=== PATIENT | male | born 1985 | race African-American/Black ===

== ENCOUNTER 2016-11-24 17:33 | Emergency (ER) | payer MEDICAID ==
[~2016-11-24] VITALS: Ht 165.1 cm; Wt 52.6 kg
[2016-11-24 17:36] VITALS: BP 122/69
== END 2016-11-24 17:57 | disposition home or self-care (01) ==
LOC: ER 17:38
DX: B35.6 Tinea cruris (principal); I10 Essential (primary) hypertension
CPT/HCPCS: 99282; A4606; Z7610

== ENCOUNTER 2017-03-09 22:55 | Emergency (ER) | payer MEDICAID ==
[~2017-03-09] VITALS: Ht 165.1 cm; Wt 72.6 kg
[2017-03-09 23:00] VITALS: BP 135/81
[2017-03-09] MEDS ORDERED: KETOROLAC TROMETHAMINE INJ 60 MG/2 ML VIAL IM STA (23:58)
[2017-03-09] MEDS ORDERED: AMOXICILLIN TRIHYDRATE 250 MG CAPSULE PO STA (23:58)
[2017-03-10] MEDS ORDERED: KETOROLAC TROMETHAMINE INJ 60 MG/2 ML VIAL IM ONE (00:16)
[2017-03-10] MEDS ORDERED: AMOXICILLIN TRIHYDRATE 250 MG CAPSULE ONE (00:16)
== END 2017-03-10 00:32 | disposition home or self-care (01) ==
LOC: ER 22:56
DX: J02.0 Streptococcal pharyngitis (principal)
CPT/HCPCS: 96372; 99283; A4606; J1885; Z7610

== ENCOUNTER 2018-04-04 13:27 | Emergency (ER) | payer MEDICAID ==
[~2018-04-04] VITALS: Ht 167.6 cm; Wt 72.6 kg
[2018-04-04 13:37] VITALS: BP 125/95
[2018-04-04 14:05] LABS: BASOPHILS % (AUTO) 0.4 % (0.0-2.0); EOSINOPHILS % (AUTO) 2.9 % (0.0-6.0); HEMATOCRIT 47 % (39-51); HEMOGLOBIN 15.5 g/dL (13.5-17.5); LYMPHOCYTES # (AUTO) 2.7 /CMM (0.8-4.8); LYMPHOCYTES % (AUTO) 28.7 % (20.0-44.0); MEAN CORPUSCULAR HEMOGLOBIN 30 PG (26.0-33.0); MEAN CORPUSCULAR HGB CONC 33 g/dl (31.0-36.0); MEAN CORPUSCULAR VOLUME 90 fL (80-96); MONOCYTES # (AUTO) 0.8 /CMM (0.1-1.30); MONOCYTES % (AUTO) 8.8 % (2.0-12.0); NEUTROPHILS # (AUTO) 5.5 /CMM (1.8-8.9); NEUTROPHILS % (AUTO) 59.2 % (43.0-81.0); PLATELET COUNT (AUTO) 218 /CMM (150-450); RDW COEFFICIENT OF VARIATION 12.7 (11.5-15.0); RED BLOOD CELL COUNT(AUTO) 5.21 MIL/uL (4.5-6.0)
[2018-04-04 14:18] LABS: CALCIUM, SERUM 8.4 mg/dL (8.5-10.1); POTASSIUM 3.5 mmol/L (3.5-5.1)
[2018-04-04 14:23] LABS: ALBUMIN 3.5 g/dL (3.4-5.0); BILIRUBIN,DIRECT 0.1 mg/dL (0.0-0.2); BILIRUBIN,TOTAL 0.7 mg/dL (0.2-1.0); TOTAL PROTEIN, SERUM 6.8 g/dL (6.4-8.2)
[2018-04-04] MEDS ORDERED: IBUPROFEN 400 MG TABLET PO ONE (14:30)
[2018-04-04] MEDS ORDERED: IBUPROFEN 400 MG TABLET ONE (14:35)
[2018-04-04 14:36] LABS: APPEARANCE,URINE CLEAR (CLEAR); BILIRUBIN,URINE NEGATIVE (NEGATIVE); BLOOD, URINE NEGATIVE Ery/uL (NEGATIVE); COLOR,URINE YELLOW (YELLOW); KETONES,URINE NEGATIVE (NEGATIVE); LEUKOCYTE ESTERASE ,URINE NEGATIVE (NEGATIVE); NITRITE, URINE NEGATIVE (NEGATIVE); PROTEIN,URINE NEGATIVE (NEGATIVE); UGLUCOSE NEGATIVE (NEGATIVE); UROBILINOGEN,URINE 0.2 EU/dL (0.2)
[2018-04-04 15:18] LABS: EOSINOPHILS % (MANUAL) 2 % (0-4); LYMPHOCYTES % (MANUAL) 29 % (16-48); MONOCYTES % (MANUAL) 6 % (0-11.0); NEUTROPHILS % (MANUAL) 58 (42-76); REACTIVE LYMPHOCYTES 5 % (0-0)
[2018-04-04 15:20] LABS: WHITE BLOOD COUNT (AUTO) 9.3 K/uL (4.3-11.0)
== END 2018-04-04 15:50 | disposition home or self-care (01) ==
LOC: ER 13:30
DX: M54.5 Low back pain (principal)
CPT/HCPCS: 36415; 80048; 80076; 81001; 83690; 85025; 99284; A4606; Z7610; 81000-TC

== ENCOUNTER 2018-06-01 21:56 | Emergency (ER) | payer MEDICAID ==
[~2018-06-01] VITALS: Ht 165.1 cm; Wt 83.0 kg
[2018-06-01 21:59] VITALS: BP 142/82
== END 2018-06-02 00:22 | disposition home or self-care (01) ==
LOC: ER 21:57
DX: S90.562A Insect bite (nonvenomous), left ankle, initial encounter (principal); W57.XXXA Bitten or stung by nonvenomous insect and other nonvenomous arthropods, initial encounter; Y93.89 Activity, other specified; Y92.89 Other specified places as the place of occurrence of the external cause; Y99.8 Other external cause status
CPT/HCPCS: 99281; A4606; Z7610; Z7502

== ENCOUNTER 2023-10-29 10:28 | Emergency (ER) | payer MEDICAID, OTHER ==
[~2023-10-29] VITALS: Ht 165.1 cm; Wt 90.7 kg
[2023-10-29] MEDS ORDERED: IV NS 0.9% 250 ML IV ONE (11:24)
[2023-10-29] MEDS ORDERED: IOHEXOL-300 100 ML VIAL IV ONE (11:24)
[2023-10-29 11:34] LABS: BASOPHILS % (AUTO) 0.3 % (0.0-2.0); EOSINOPHILS # (AUTO) 0.2 K/uL (0.0-0.7); EOSINOPHILS % (AUTO) 2.7 % (0.0-6.0); HEMATOCRIT 46 % (39-51); HEMOGLOBIN 15.3 g/dL (13.5-17.5); LYMPHOCYTES # (AUTO) 2.6 K/uL (0.8-4.8); LYMPHOCYTES % (AUTO) 30.4 % (20.0-44.0); MEAN CORPUSCULAR HEMOGLOBIN 29 PG (26.0-33.0); MEAN CORPUSCULAR HGB CONC 33 g/dl (31.0-36.0); MEAN CORPUSCULAR VOLUME 88 fL (80-96); MONOCYTES # (AUTO) 0.8 K/uL (0.1-1.30); MONOCYTES % (AUTO) 9.1 % (2.0-12.0); NEUTROPHILS % (AUTO) 57.5 % (43.0-81.0); PLATELET COUNT (AUTO) 230 K/uL (150-450); RED BLOOD CELL COUNT(AUTO) 5.24 MIL/uL (4.5-6.0); RED CELL DISTRIBUTION WIDTH 13.1 % (11.5-15.0); WHITE BLOOD COUNT (AUTO) 8.6 K/uL (4.3-11.0)
[2023-10-29 11:36] LABS: APPEARANCE,URINE CLEAR (CLEAR); BILIRUBIN,URINE 1+ (NEGATIVE); BLOOD, URINE NEGATIVE Ery/uL (NEGATIVE); COLOR,URINE YELLOW (YELLOW); KETONES,URINE NEGATIVE (NEGATIVE); LEUKOCYTE ESTERASE ,URINE NEGATIVE (NEGATIVE); NITRITE, URINE NEGATIVE (NEGATIVE); PROTEIN,URINE TRACE mg/dl (NEGATIVE); UGLUCOSE NEGATIVE (NEGATIVE)
[2023-10-29 11:41] LABS: ADD URINE CULTURE NO; BACTERIA,URINE Rare /HPF (None Seen); RBC,URINE 0-2 /HPF (0-2); SQUAMOUS EPITHELIAL CELL,UR Few /HPF (None Seen); WBC,URINE 0-2 /HPF (0-3)
[2023-10-29 11:48] LABS: ALBUMIN 3.8 g/dL (3.4-5.0); BILIRUBIN,DIRECT 0.2 mg/dL (0.0-0.2); BILIRUBIN,TOTAL 0.9 mg/dL (0.2-1.0); CALCIUM, SERUM 8.9 mg/dL (8.5-10.1); POTASSIUM 3.6 mmol/L (3.5-5.1); TOTAL PROTEIN, SERUM 7.7 g/dL (6.4-8.2)
[2023-10-29] MEDS ORDERED: KETOROLAC TROMETHAMINE INJ 30 MG/ML VIAL ONE (12:18)
[2023-10-29] MEDS: KETOROLAC TROMETHAMINE INJ 30 MG/ML VIAL IV ONE (12:23)
[2023-10-29] MEDS ORDERED: KETO10TA2 PO (12:27)
[2023-10-29] MEDS ORDERED: LOPE2CAP40 PO (12:27)
[2023-10-29 14:06] VITALS: BP 133/82; TEMP 98.8; O2SAT 95
== END 2023-10-29 14:06 | disposition home or self-care (01) ==
LOC: ER 10:36
DX: K52.9 Noninfective gastroenteritis and colitis, unspecified (principal); K46.9 Unspecified abdominal hernia without obstruction or gangrene; Z79.899 Other long term (current) drug therapy
CPT/HCPCS: 99285; 74177; 96374; 85025; 80048; 83690; 80076; 81001; 36415; J1885; J7050; Q9967

== ENCOUNTER 2024-02-03 16:44 | Emergency (ER) | payer OTHER ==
[~2024-02-03] VITALS: Ht 167.6 cm; Wt 93.0 kg
[~2024-02-03 16:44] MED LIST: KETO10TA2 PO; LOPE2CAP40 PO
[2024-02-03] MEDS ORDERED: CYCLOBENZAPRINE 10 MG TABLET ONE ×2 (17:22→17:32)
[2024-02-03] MEDS ORDERED: KETOROLAC TROMETHAMINE 15 MG/ML VIAL ONE (17:22)
[2024-02-03] MEDS ORDERED: LIDOCAINE 5% (PATCH) 1 EA PATCH TP ONE (17:22)
[2024-02-03] MEDS: KETOROLAC TROMETHAMINE 15 MG/ML VIAL IM ONE (17:29)
[2024-02-03] MEDS: LIDOCAINE 5% (PATCH) 1 EA PATCH TP ONE (17:32)
[2024-02-03] MEDS: CYCLOBENZAPRINE 10 MG TABLET PO ONE (17:32)
[2024-02-03] MEDS ORDERED: IBUP-1955 PO (18:31)
[2024-02-03] MEDS ORDERED: CYCL5TAB PO (18:31)
[2024-02-03] MEDS ORDERED: ACET-2605 PO (18:31)
[2024-02-03 19:07] VITALS: BP 138/84; TEMP 98.7; O2SAT 100
== END 2024-02-03 19:07 | disposition home or self-care (01) ==
LOC: ER 16:49
DX: M54.2 Cervicalgia (principal); M54.50 Low back pain, unspecified; V49.9XXA Car occupant (driver) (passenger) injured in unspecified traffic accident, initial encounter; Y93.89 Activity, other specified; Y92.89 Other specified places as the place of occurrence of the external cause; Y99.8 Other external cause status
CPT/HCPCS: 99283; 96372; J1885

== ENCOUNTER 2025-08-18 09:50 | Emergency (ER) | payer MEDICAID, OTHER ==
[~2025-08-18] VITALS: Ht 167.6 cm; Wt 77.1 kg
[~2025-08-18 09:50] MED LIST changes: +ACET-2605 PO; +CYCL5TAB PO; +IBUP-1955 PO
[2025-08-18] MEDS ORDERED: CYCLOBENZAPRINE 10 MG TABLET ONE (10:17)
[2025-08-18] MEDS ORDERED: KETOROLAC TROMETHAMINE INJ 30 MG/ML VIAL ONE (10:17)
[2025-08-18] MEDS ORDERED: CYCL5TAB PO (10:21)
[2025-08-18] MEDS: KETOROLAC TROMETHAMINE INJ 30 MG/ML VIAL IM ONE (10:24)
[2025-08-18] MEDS: CYCLOBENZAPRINE 10 MG TABLET PO ONE (10:25)
[2025-08-18 10:32] VITALS: BP 145/87; TEMP 98.5; O2SAT 99
== END 2025-08-18 10:32 | disposition home or self-care (01) ==
LOC: ER 10:05
DX: M54.9 Dorsalgia, unspecified (principal); M54.2 Cervicalgia; M25.551 Pain in right hip; V43.52XA Car driver injured in collision with other type car in traffic accident, initial encounter; Y93.89 Activity, other specified; Y92.410 Unspecified street and highway as the place of occurrence of the external cause; Y99.9 Unspecified external cause status
CPT/HCPCS: 99283; 96372; J1885

== ENCOUNTER 2025-08-20 16:00 | Emergency (ER) | payer MEDICAID ==
[~2025-08-20] VITALS: Ht 167.6 cm; Wt 77.1 kg
[2025-08-20 16:04] VITALS: BP 128/88; TEMP 98.2
[2025-08-20] MEDS: KETOROLAC TROMETHAMINE 15 MG/ML VIAL IM ONE (16:30)
[2025-08-20] MEDS ORDERED: KETOROLAC TROMETHAMINE 15 MG/ML VIAL ONE (17:34)
[2025-08-20] MEDS ORDERED: LIDO30AD10 TP (17:43)
[2025-08-20] MEDS ORDERED: ACET-2030 PO (17:43)
[2025-08-20] MEDS ORDERED: IBUP-1957 PO (17:43)
[2025-08-20 18:03] VITALS: O2SAT 99
== END 2025-08-20 18:04 | disposition home or self-care (01) ==
LOC: ER 16:09
DX: M54.50 Low back pain, unspecified (principal); M25.551 Pain in right hip; M54.2 Cervicalgia; Z91.048 Other nonmedicinal substance allergy status
CPT/HCPCS: 99284; 96372; 72040; 72100; 73502; J1885